=== PATIENT | male | born 1965 | race Caucasian/White ===

== ENCOUNTER 2017-07-26 13:22 | Emergency (ER) | payer MEDICAID ==
[~2017-07-26 13:22] MED LIST: ASPI-516 CHEW; CARPAL TUNNEL W1 MIS; CYAN1TAB21 SL; CYCL5TAB PO; FISH1000 PO; GEMF600T PO; HYDR-3580 PO; MELO15TA20 PO; [UNRECOGNIZED DRUG - OTHER]
[2017-07-26 13:26] VITALS: BP 137/85; PULSE 62; RESP 14; TEMP 98.4; O2SAT 100
--- NOTE | 2017-07-26 14:04 | PD ---
HPI Chief Complaint: Headache Time Seen by Provider: 13:41 Travel History International Travel<30 days: No Contact w/Intl Traveler<30days: No Traveled to known affect area: No History of Present Illness HPI 51-year-old male complaints of headache and visual change. Patient has history of migraine headache. Patient started having aching headache mostly frontal half per the past 5 days. Patient denies any photophobia or nausea vomiting. Patient states that he started having jerking movements of the eyes bilaterally this morning. At the same time patient could not see out of both eyes. Patient states that he experience a white out of the bilaterally visual field. Patient states that the visual disturbance lasted about 30 seconds to a minute. Patient states that the visual disturbance resolved completely subsequently. Patient denies any focal weakness or numbness of the extremity this morning. Patient denies any bowel or bladder incontinence. Patient denies a history of seizure. Patient had similar episode in 2012. Patient was admitted to another hospital and workup was negative. Patient has history of DVT and on aspirin 81 mg daily. Patient denies any history hypertension, diabetes, hyperlipidemia. Patient denies history of TIA or CVA. PFSH Social History Tobacco Use: No Allergies-Medications (Allergen,Severity, Reaction): Coded Allergies: pregabalin (Verified Allergy, Severe, swelling, 05/10/17) gabapentin (Verified Allergy, Intermediate, swelling and rash in legs, 04/16) mometasone furoate (Verified Allergy, Intermediate, swelling and rash in feet, 05/10/17) Reported Meds & Prescriptions Reported Meds & Active Scripts Active Augmentin (Amoxicillin-Clavulanate) 875-125 Mg Tab 1 Tab PO BID Fioricet (Hbvujjgvup-Xqdpvuluqaobq-Fjvicnyh) 50-300-40 Mg Cap 1-2 Cap PO Q6H PRN Meloxicam 15 Mg Tab 15 Mg PO DAILY Flexeril (Cyclobenzaprine HCl) 5 Mg Tab 5 Mg PO TID Gemfibrozil 600 Mg Tab 600 Mg PO DAILY Carpal Tunnel Wrist Stabizer 1 Mis Mis Ea .ROUTE DIRECTED Splint Wrist Brace/Left-R 1 Mis Mis Ea .ROUTE DIRECTED Reported Voltaren (Diclofenac Sodium) 1 % Gel..gram. Hydrocodone-Acetaminophen 7.5 Mg-325 Mg Tab 1 Tab PO Q4H PRN Fish Oil ([place]-3 Fatty Acids) 1,000 Mg Cap 2 Cap PO DAILY Aspirin 81 Mg Chew 81 Mg CHEW ONCE Review of Systems General / Constitutional: No: Fever Eyes: Positive: Visual changes HENT: Positive: Headaches Cardiovascular: No: Chest Pain or Discomfort Respiratory: No: Shortness of Breath Gastrointestinal: No: Abdominal Pain Genitourinary: No: Dysuria Musculoskeletal: No: Pain Skin: No Rash Neurologic: No: Weakness Psychiatric: No: Depression Endocrine: No: Polydipsia Hematologic/Lymphatic: No: Easy Bruising Physical Exam Narrative GENERAL: Well-nourished, well-developed patient. SKIN: Focused skin assessment warm/dry. HEAD: Normocephalic. EYES: No scleral icterus. No injection or drainage. Pupil 2 mm equal reactive. NECK: Supple, trachea midline. No JVD or lymphadenopathy. CARDIOVASCULAR: Regular rate and rhythm without murmurs, gallops, or rubs. RESPIRATORY: Breath sounds equal bilaterally. No accessory muscle use. GASTROINTESTINAL: Abdomen soft, non-tender, nondistended. MUSCULOSKELETAL: No cyanosis, or edema. BACK: Nontender without obvious deformity. No CVA tenderness. Neurologic exam: Patient is awake and alert and oriented 3. Patient moves all extremities well. No obvious focal neurologic deficit. Data Data Last Documented VS Vital Signs Date Time Temp Pulse Resp B/P (MAP) Pulse Ox O2 Delivery O2 Flow Rate FiO2 07/26/17 13:26 98.4 62 14 137/85 (102) 100 Orders Orders Complete Blood Count With Diff (07/26/17 13:29) Basic Metabolic Panel (Bmp) (07/26/17 13:29) Coag Profile (07/26/17 13:29) Ct Brain W/O Iv Contrast(Rout) (07/26/17 ) Mri Brain W&W/O Contrast (07/26/17 14:14) Gadodiamide Pf Inj (Omniscan Pf Inj) (07/26/17 15:18) Ed Discharge Order (07/26/17 16:10) Labs Laboratory Tests Test 07/26/17 14:08 White Blood Count 7.6 TH/MM3 Red Blood Count 4.52 MIL/MM3 Hemoglobin 14.9 GM/DL Hematocrit 43.3 % Mean Corpuscular Volume 95.8 FL Mean Corpuscular Hemoglobin 32.9 PG Mean Corpuscular Hemoglobin Concent 34.4 % Red Cell Distribution Width 12.5 % Platelet Count 144 TH/MM3 Mean Platelet Volume 10.3 FL Neutrophils (%) (Auto) 64.3 % Lymphocytes (%) (Auto) 26.2 % Monocytes (%) (Auto) 6.1 % Eosinophils (%) (Auto) 2.9 % Basophils (%) (Auto) 0.5 % Neutrophils # (Auto) 4.9 TH/MM3 Lymphocytes # (Auto) 2.0 TH/MM3 Monocytes # (Auto) 0.5 TH/MM3 Eosinophils # (Auto) 0.2 TH/MM3 Basophils # (Auto) 0.0 TH/MM3 CBC Comment DIFF FINAL Differential Comment Prothrombin Time 10.4 SEC Prothromb Time International Ratio 1.0 RATIO Activated Partial Thromboplast Time 24.5 SEC Blood Urea Nitrogen 14 MG/DL Creatinine 0.81 MG/DL Random Glucose 89 MG/DL Calcium Level 8.5 MG/DL Sodium Level 138 MEQ/L Potassium Level 4.2 MEQ/L Chloride Level 106 MEQ/L Carbon Dioxide Level 27.4 MEQ/L Anion Gap 5 MEQ/L Estimat Glomerular Filtration Rate 101 ML/MIN [facility] Medical Decision Making Medical Screen Exam Complete: Yes Emergency Medical Condition: Yes Interpretation(s) [address] scan of the brain shows acute maxillary sinusitis. CBC within normal limits. 1543 PM. BMP within normal limits. Differential Diagnosis Differential diagnosis including complex migraine, seizures, intracranial pathology, TIA, CVA, Narrative Course 51-year-old male with transient eye movement and Blurred vision. Diagnosis Primary Impression: Migraine variant Additional Impression: Sinusitis Qualified Codes: J01.00 - Acute maxillary sinusitis, unspecified Patient Instructions: General Instructions Additional Instructions: Take medications as directed. Follow-up with personal physician. Return if worse. Med/Other Pt SpecificInfo: Prescription(s) given Scripts Amoxicillin-Clavulanate (Augmentin) 875-125 Mg Tab 1 TAB PO BID for Infection, #20 TAB 0 Refills Prov: Marquis Hampton MD 07/26/17 Ddgqbphytw-Ygpjtdmzolspi-Oagqtvlf (Fioricet) 50-300-40 Mg Cap 1-2 CAP PO Q6H Y for HEADACHE, #30 CAP 0 Refills Prov: Marquis Hampton MD 07/26/17 Disposition: 01 DISCHARGE HOME Condition: Stable Marquis Hampton MD Jul 26, 2017 14:04
[2017-07-26] MEDS ORDERED: VOLT1GEL16 (14:13)
--- NOTE | 2017-07-26 14:22 | RADRPT ---
EXAM DATE/TIME: 07/26/2017 13:52 [facility] COMPARISON: No previous studies available for comparison. 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 ENCOUNTER: Initial ACUITY: 4 - 6 days PAIN SCALE: 8/10 LOCATION: cranial TECHNIQUE: Multiple contiguous axial images were obtained of the head. Using automated exposure control and adj ustment of the mA and/or kV according to patient size, radiation dose was kept as low as reasonably a chievable to obtain optimal diagnostic quality images. DICOM format image data is available electro nically for review and comparison. FINDINGS: CEREBRUM: The ventricles are normal for age. No evidence of midline shift, mass lesion, hemorrhage or acute in farction. No extra-axial fluid collections are seen. POSTERIOR FOSSA: The cerebellum and brainstem are intact. The 4th ventricle is midline. The cerebellopontine angle i s unremarkable. EXTRACRANIAL: The visualized portion of the orbits is intact. Large air-fluid levels in both maxillary are concerni ng for acute sinusitis. SKULL: The calvaria is intact. No evidence of skull fracture. CONCLUSION: 1. CT findings concerning for bilateral maxillary antra acute sinusitis. 2. Otherwise negative Brennen Kincaid MD on July 26, 2017 at 14:07 Board Certified Radiologist. This report was verified electronically.
[2017-07-26 14:23] LABS: AUTOMATED NEUTROPHIL # 4.9 TH/MM3 (1.8-7.7); BASOPHIL % 0.5 % (0.0-2.0); EOSINOPHIL # 0.2 TH/MM3 (0-0.4); EOSINOPHIL % 2.9 % (0.0-4.0); HEMATOCRIT 43.3 % (39.0-51.0); HEMOGLOBIN 14.9 GM/DL (13.0-17.0); LYMPH % 26.2 % (9.0-44.0); MEAN CELL VOLUME 95.8 FL (80.0-100.0); MEAN CORPUSCULAR HEMOGLOBIN 32.9 PG (27.0-34.0); MEAN CORPUSCULAR HGB CONC 34.4 % (32.0-36.0); MEAN PLATELET VOLUME 10.3 FL (7.0-11.0); MONO % 6.1 % (0.0-8.0); MONOCYTE # 0.5 TH/MM3 (0-0.9); NEUT % 64.3 % (16.0-70.0); PLATELET COUNT 144 TH/MM3 (150-450); RED BLOOD COUNT 4.52 MIL/MM3 (4.50-5.90); RED CELL DISTRIBUTION WIDTH 12.5 % (11.6-17.2); WHITE BLOOD COUNT 7.6 TH/MM3 (4.0-11.0)
[2017-07-26 14:34] LABS: PROTHROMBIN TIME - PATIENT 10.4 SEC (9.8-11.6)
[2017-07-26 14:42] LABS: BICARBONATE 27.4 MEQ/L (21.0-32.0); CALCIUM 8.5 MG/DL (8.5-10.1); CREATININE 0.81 MG/DL (0.60-1.30)
[2017-07-26] MEDS ORDERED: GADODIAMIDE PF 287 MG/ML 5 ML VIAL (for RAD MRI) IV PUSH ONE (15:18)
--- NOTE | 2017-07-26 15:57 | RADRPT ---
EXAM DATE/TIME: 07/26/2017 14:54 [facility] COMPARISON: No previous studies available for comparison. INDICATIONS : CVA. CONTRAST: 19 cc Omniscan (gadodiamide) IV MEDICAL HISTORY : UPJO. SURGICAL HISTORY : Inguinal hernia repair. Acucise procdure. Cyst removed from neck and wrist. ENCOUNTER: Subsequent ACUITY: 1 day PAIN SCORE: 0/10 LOCATION: cranial TECHNIQUE: Multiplanar, multisequence MRI of the brain was performed both prior to and following the administrat ion of paramagnetic contrast. FINDINGS: There are minimal scattered periventricular white matter changes evident. There is an focal area of appearing demyelinization sitting within the brainstem. There is no restricted diffusion evident. Ventricular size is appropriate. There is no parenchymal hemorrhage. There is no acute infarction. There are no extra-axial fluid collections appreciated. Findings venous administration of gadolinium there is no abnormal contrast enhancement appreciated. Other than the apparent demyelinating changes in the brainstem posterior fossa is unremarkable with m idline fourth ventricle.. CONCLUSION: Apparent demyelinating changes in the brainstem at the level of the brachium pontis. Scattered supratentorial periventricular white matter changes There is no abnormal contrast enhancement. There is no subacute ischemic event. Anish Shannon MD FACR on July 26, 2017 at 15:53 Board Certified Radiologist. This report was verified electronically.
[2017-07-26] MEDS ORDERED: BUTA1CAP PO (16:14)
[2017-07-26] MEDS ORDERED: AUGM875T3 PO (16:14)
== END 2017-07-26 16:40 | disposition home or self-care (01) ==
LOC: NEPD 13:22
DX: G43.909 Migraine, unspecified, not intractable, without status migrainosus (principal); J01.00 Acute maxillary sinusitis, unspecified; Z79.82 Long term (current) use of aspirin; Z86.718 Personal history of other venous thrombosis and embolism
CPT/HCPCS: 70450; 70553; 80048; 85025; 85610; 85730; 96374; 99285; A9579